=== PATIENT | male | born 1990 | race African-American/Black ===

== ENCOUNTER 2020-11-22 19:52 | Observation (INO) | payer MEDICAID, SELFPAY ==
[2020-11-22 19:53] VITALS: BP 139/95; PULSE 114; RESP 18; TEMP 36.3; O2SAT 98; BMI 26.4
--- NOTE | 2020-11-22 20:12 | EX.ED.DYSGE1 ---
HPI History of Present Illness Chief Complaint: Substance Abuse Informant: patient and parent Narrative Narrative: Patient presents requesting detox. Patient states that he was recently in long term. While in long term he was using any drugs that he can get his hands on. He knew he was going to be getting out of long term and his family would not allow him to use drugs so he tried to put himself on Suboxone while he was still in long term. After being released he tried getting it off the street. He was seen at [place] emergency room and placed on a 5-day course of Suboxone but missed his follow-up appointment at [facility]. Patient states he then started trying to buy Suboxone off the street again. He was having difficulty finding it was developing significant withdrawal symptoms. In the last several weeks he has tried using heroin, meth, cocaine to help control his withdrawal symptoms. He is asking for admission and detox through appropriate means. Patient currently complains of runny nose, body aches, aching in his legs. [facility] Medical History Paranoid schizophrenia Restless leg syndrome Substance abuse Home Medications olanzapine 15 mg PO QHS 11/22/20 [History Last Taken Unknown] Allergy/AdvReac Type Severity Reaction Status Date / Time Penicillins Allergy Unknown Verified 11/22/20 19:53 Social History (Updated 11/22/20 @ 20:[address] Xiomara Avalos MD) Smoking Status: Former smoker substance use type: crack/cocaine, heroin, opiates and methamphetamine ROS ROS ED Constitutional Constitutional ED: Denies chills or fever(s) Eyes Eyes: Denies change in vision ENT ENT ED: Reports rhinorrhea; Denies sore throat Cardiovascular Cardiovascular: Denies chest pain Respiratory/Chest Respiratory/Chest: Denies cough or dyspnea Gastrointestinal Gastrointestinal: Denies abdominal pain, diarrhea, nausea or vomiting Genitourinary Genitourinary ED: Denies dysuria Musculoskeletal Musculoskeletal: Reports myalgias; Denies back pain Integumentary Denies rash Neurologic Neurologic: Denies headache(s) or weakness Psychiatric Psychiatric: Denies anxiety or depression Endocrine Endocrinology: Denies polydipsia or polyuria Allergic/Immunologic Allergic/Immunologic ED: Denies urticaria EXAM Physical Exam Const Vital Signs: 11/22/20 19:53 Temperature 97.4 F L Temperature Source Temporal Pulse Rate 114 H Respiratory Rate 18 Blood Pressure 139/95 H Blood Pressure Mean 109 Pulse Ox 98 Oxygen Delivery Method Room Air Positive well nourished and well developed General Appearance ED: well developed HEENT Reports normocephalic and head/scalp atraumatic Eyes PERRL and EOMs intact bilaterally Neck supple Chest Wall inspection of chest normal and palpation of chest normal Resp normal respiratory effort and clear to auscultation bilaterally Cardio regular rate and regular rhythm GI normal to inspection, nondistended, normoactive bowel sounds Palpation: soft Back/Spine no CVA tenderness Extremity normal to inspection Extremity Narrative: Track alvarado noted to the right AC. No sign of acute infection Neuro oriented x3 and no sensory deficits noted Sensorium / Orientation: alert Motor Exam: strength 5/5 throughout Psych mental status grossly normal Skin General Skin Exam: other Track alvarado as above MDM MDM MDM Narrative Medical decision making narrative: Rules of the detox program were reviewed with the patient he did sign agreement. Lab Data Attestation: I reviewed the patient's lab results. Labs: Laboratory Results - last 24 hr 11/22/20 11/22/20 11/22/20 20:30 20:45 20:45 WBC 4.1 L RBC 5.20 Hgb 14.7 Hct 44.0 MCV 84.6 MCH 28.3 MCHC 33.4 RDW Std Deviation 39.3 RDW Coeff of Anali 12.8 Plt Count 205 MPV 9.5 Immature Gran % (Auto) 0.200 Neut % (Auto) 47.9 Lymph % (Auto) 34.6 [place] % (Auto) 14.1 H Eos % (Auto) 2.7 Baso % (Auto) 0.5 Absolute Neuts (auto) 1.9 L Absolute Lymphs (auto) 1.40 Nucleated RBC % 0 Sodium 140 Potassium 3.8 Chloride 103 Carbon Dioxide 35.0 H Anion Gap 2 L BUN 14 Creatinine 0.96 Estim Creat Clear Calc 124.84 Est GFR (MDRD) Af Amer 117 Est GFR (MDRD) Non-Af 96 BUN/Creatinine Ratio 14.6 Glucose 92 Calcium 9.0 Total Bilirubin 0.50 AST 50 H ALT 103 H Alkaline Phosphatase 76 Total Protein 7.3 Albumin 3.6 Globulin 3.7 Albumin/Globulin Ratio 1.0 Urine Opiates Screen POSITIVE H Urine Methadone Screen NEGATIVE Ur Barbiturates Screen NEGATIVE Ur Phencyclidine Scrn NEGATIVE Ur Amphetamines Screen POSITIVE H U Methamphetamin-MDMA POSITIVE H U Benzodiazepines Scrn NEGATIVE Urine Cocaine Screen POSITIVE H U Cannabinoids Screen NEGATIVE Ur Drug Screen Comment Ethyl Alcohol 11/22/20 20:45 WBC RBC Hgb Hct MCV MCH MCHC RDW Std Deviation RDW Coeff of Anali Plt Count MPV Immature Gran % (Auto) Neut % (Auto) Lymph % (Auto) [place] % (Auto) Eos % (Auto) Baso % (Auto) Absolute Neuts (auto) Absolute Lymphs (auto) Nucleated RBC % Sodium Potassium Chloride Carbon Dioxide Anion Gap BUN Creatinine Estim Creat Clear Calc Est GFR (MDRD) Af Amer Est GFR (MDRD) Non-Af BUN/Creatinine Ratio Glucose Calcium Total Bilirubin AST ALT Alkaline Phosphatase Total Protein Albumin Globulin Albumin/Globulin Ratio Urine Opiates Screen Urine Methadone Screen Ur Barbiturates Screen Ur Phencyclidine Scrn Ur Amphetamines Screen U Methamphetamin-MDMA U Benzodiazepines Scrn Urine Cocaine Screen U Cannabinoids Screen Ur Drug Screen Comment Ethyl Alcohol < 3.0 Treatment and Re-Evaluation Comments:: Lab work is obtained. ALT and AST are elevated. Remainder of lab work is largely unremarkable. Tox screen is positive for opiates, cocaine, amphetamines, methamphetamine. Patient will be discussed with hospitalist for admission. Discharge Plan Triage Chief Complaint: Substance Abuse ED Provider: Xiomara Avalos Dx/Rx/DC Orders Clinical Impression: Desire for detoxification, Opiate addiction Prescriptions: No Action olanzapine 15 mg Tablet 15 mg PO QHS RF: 0 Primary Care Provider: Care Physician,No Primary Referrals: Care Physician,No Primary [Primary Care Provider] -
[2020-11-22 20:48] LABS: Absolute Neutrophil Count 1.9 X10^3/uL (2.0-7.7); Basophil# 0.02 X10^3/uL; Basophil% 0.5 % (0-1); Eosinophil# 0.11 X10^3/uL; Eosinophils% 2.7 % (0-5); Hemoglobin 14.7 g/dL (13.0-16.5); Lymphocyte % 34.6 % (19-41); Mean Corp Hgb Conc 33.4 g/dL (32-36); Mean Corpuscular Hgb 28.3 pg (27.0-32.0); Mean Corpuscular Volume 84.6 fL (80-94); Mean Platelet Vol. 9.5 fl (6.2-12.0); Monocyte# 0.57 X10^3/uL; Monocyte% 14.1 % (0-10); NRBC Flagged by Analyzer 0 % (0-5); Neutrophil # 1.94 X10^3/uL (2.7-7.7); Neutrophil % 47.9 % (47-70); Platelet Count 205 K/mm3 (150-450); RBC Distribution Width CV 12.8 % (11.6-14.6); RBC Distribution Width SD 39.3 fl (35.1-43.9); White Blood Count 4.1 K/mm3 (4.4-11.0)
[2020-11-22 21:10] LABS: AST(SGOT) 50 U/L (15-37); Alanine Aminotransfer ALT/SGPT 103 U/L (16-61); Albumin, Serum 3.6 g/dL (3.2-5.0); Alkaline Phosphatase 76 U/L (45-117); Anion Gap 2 (5-15); BUN 14 mg/dL (7-18); BUN/Creat Ratio 14.6 RATIO (10-20); Chloride 103 mmol/L (98-107); Creatinine, Serum 0.96 mg/dL (0.70-1.30); EST Glomerular Filtration Rate 96 mL/min (>60); Est Glom Filt Rate - Afr Amer 117 mL/min (>60); Estimated Creatinine Clearance 124.84 ml/min; Globulin 3.7 g/dL (2.2-4.2); Glucose 92 mg/dL (74-106); Potassium 3.8 mmol/L (3.5-5.1); Protein, Total 7.3 g/dL (6.4-8.2); Sodium Level 140 mmol/L (136-145)
[2020-11-22 21:19] LABS: Alcohol, Blood (Medical)-Serum < 3.0 mg/dL
[2020-11-22 21:19] LABS: Amphetamine Urine VISTA POSITIVE (<1000 ng/mL); Barbiturate Urine VISTA NEGATIVE (< 200 ng/mL); Benzodiazepine Urine VISTA NEGATIVE (< 200 ng/mL); Cocaine Urine VISTA POSITIVE (< 300 ng/mL); Ecstacy Urine VISTA POSITIVE (< 500 ng/mL); Methadone Urine VISTA NEGATIVE (< 300 ng/mL); PCP Urine VISTA NEGATIVE (< 25 ng/mL); THC Urine VISTA NEGATIVE (< 50 ng/mL); Vista UDS pH Range 5
--- NOTE | 2020-11-22 21:53 | PCM.HP.STD ---
HPI - General General Date of Admission: 11/22/20 HPI Narrative NORMA NGUYEN, is a 30 M with a significant history of paranoid schizophrenia; restless legs and substance abuse who presents with drug withdrawal symptoms. His symptoms started few hours ago before presentation and it has been persistent.. His symptoms include runny nose; body aches; abdominal pain; aching in his legs and his feet. His symptom has been persistent. Patient shoots a mixture of different drugs including cocaine; methamphetamine; heroine; and fentanyl. Last time he used drugs was a day before presentation. At that time he shot methamphetamine and heroin. Of note patient was in the prisons recently and was using all kind of drugs as above. When he realized that he will be getting out of shelter he wanted to come out of drugs and started using Suboxone. He was at the [facility] recently and was given a prescription of Suboxone. He ran out of the Suboxone and started buying Suboxone off the street. [facility] Medical History Anxiety Asthma Depression Former smoker Hearing loss, left Hepatitis Paranoid schizophrenia Restless leg syndrome Schizophrenia Seizures Substance abuse Substance abuse Home Medications olanzapine 15 mg PO QHS 11/22/20 [History Last Taken Unknown] Allergy/AdvReac Type Severity Reaction Status Date / Time Penicillins Allergy Unknown Verified 11/22/20 19:53 Family History Grandmother Schizophrenia Drug abuse Grandfather Drug abuse Mother Drug abuse no surgical history Social History Smoking Status: Former smoker substance use type: crack/cocaine, heroin, opiates and methamphetamine ROS ROS Narrative 12 point review of system is negative except as stated in HPI. Vital Signs Vital Signs Vital Signs: 11/22/20 19:53 Temperature 97.4 F L Temperature Source Temporal Pulse Rate 114 H Respiratory Rate 18 Blood Pressure 139/95 H Blood Pressure Mean 109 Pulse Ox 98 Oxygen Delivery Method Room Air Physical Exam Narrative Alert and oriented x3 Nontraumatic; normocephalic Lung clear to auscultate Tachycardia; heart sounds S1-S2. No murmur, gallop or rubs. Abdomen bowel sounds present soft, nontender nondistended Extremity without edema cyanosis or clubbing. Lab / Micro Data Result Diagrams: 11/22/20 20:45 11/22/20 20:45 Labs: Laboratory Results - last 24 hr 11/22/20 11/22/20 11/22/20 20:30 20:45 20:45 WBC 4.1 L RBC 5.20 Hgb 14.7 Hct 44.0 MCV 84.6 MCH 28.3 MCHC 33.4 RDW Std Deviation 39.3 RDW Coeff of Anali 12.8 Plt Count 205 MPV 9.5 Immature Gran % (Auto) 0.200 Neut % (Auto) 47.9 Lymph % (Auto) 34.6 [place] % (Auto) 14.1 H Eos % (Auto) 2.7 Baso % (Auto) 0.5 Absolute Neuts (auto) 1.9 L Absolute Lymphs (auto) 1.40 Nucleated RBC % 0 Sodium 140 Potassium 3.8 Chloride 103 Carbon Dioxide 35.0 H Anion Gap 2 L BUN 14 Creatinine 0.96 Estim Creat Clear Calc 124.84 Est GFR (MDRD) Af Amer 117 Est GFR (MDRD) Non-Af 96 BUN/Creatinine Ratio 14.6 Glucose 92 Calcium 9.0 Total Bilirubin 0.50 AST 50 H ALT 103 H Alkaline Phosphatase 76 Total Protein 7.3 Albumin 3.6 Globulin 3.7 Albumin/Globulin Ratio 1.0 Urine Opiates Screen POSITIVE H Urine Methadone Screen NEGATIVE Ur Barbiturates Screen NEGATIVE Ur Phencyclidine Scrn NEGATIVE Ur Amphetamines Screen POSITIVE H U Methamphetamin-MDMA POSITIVE H U Benzodiazepines Scrn NEGATIVE Urine Cocaine Screen POSITIVE H U Cannabinoids Screen NEGATIVE Ur Drug Screen Comment Ethyl Alcohol 11/22/20 20:45 WBC RBC Hgb Hct MCV MCH MCHC RDW Std Deviation RDW Coeff of Anali Plt Count MPV Immature Gran % (Auto) Neut % (Auto) Lymph % (Auto) [place] % (Auto) Eos % (Auto) Baso % (Auto) Absolute Neuts (auto) Absolute Lymphs (auto) Nucleated RBC % Sodium Potassium Chloride Carbon Dioxide Anion Gap BUN Creatinine Estim Creat Clear Calc Est GFR (MDRD) Af Amer Est GFR (MDRD) Non-Af BUN/Creatinine Ratio Glucose Calcium Total Bilirubin AST ALT Alkaline Phosphatase Total Protein Albumin Globulin Albumin/Globulin Ratio Urine Opiates Screen Urine Methadone Screen Ur Barbiturates Screen Ur Phencyclidine Scrn Ur Amphetamines Screen U Methamphetamin-MDMA U Benzodiazepines Scrn Urine Cocaine Screen U Cannabinoids Screen Ur Drug Screen Comment Ethyl Alcohol < 3.0 Assessment & Plan Assessment/Plan (1) Desire for detoxification: (2) Opiate addiction: QUALIFIERS: Substance use status: in withdrawal Qualified Code(s): F11.23 - Opioid dependence with withdrawal (3) Elevated liver enzymes: PLAN: The patient is a 30 year old M with a significant history schizophrenia; hepatitis IV drug use; and former tobacco abuse who presents emergency department with drug withdrawal symptoms Opioid dependence and withdrawal Patient be started on Subutex and other adjunctive medications: Gabapentin as needed; dicyclomine as needed; Vistaril as needed; methocarbamol as needed; clonidine as needed; Imodium as needed; trazodone as needed and Zofran as needed. Monitor COWS and CINA score Elevated liver enzymes Imaging department labs reviewed showed elevated liver biochemistry. Reported previously he had hepatitis C but not in remission. Check acute hepatitis panel. DVT prophylaxis Low risk Encourage to ambulate Multi Select Codes Visit Charges Visit Charges: 36317 Init Hosp L3
--- NOTE | 2020-11-22 22:10 | ED.RN ---
CALLED TO ADVISE 180 OF THIS ADMISSION
[2020-11-22 22:35] VITALS: BP 139/95; PULSE 114; RESP 18; TEMP 36.3; O2SAT 98
[2020-11-22 22:53] VITALS: BP 154/97; PULSE 102; RESP 18; TEMP 36.9; O2SAT 97
[2020-11-22 22:57] VITALS: BMI 25.9
[2020-11-22] MEDS: Methocarbamol 750 MG Tablet 1500 MG PO (23:40)
[2020-11-22] MEDS: OLANZapine 10 MG Tablet 15 MG PO (23:40)
[2020-11-22] MEDS: Loperamide 2 MG Capsule PO (23:41)
--- NOTE | 2020-11-23 01:08 | NURSING ---
[id number] this RN was completing admission process and educating pt on [facility] protocols. This RN told pt that his hat had to be removed and placed in the lock-up bins. pt stating that I am a paranoid schizophrenic and I have to have my hat at all times. It is a security issue. Pt refusing to let this RN place hat in bins. Charge Nurse Fang in room and explained protocols again, but pt still refusing. was contacted and said as long as nothing was in the hat, pt may wear it. This RN searched hat, had pt take it and the bandana around pts hat off, and searched. Nothing was found, and hat placed back with pt.
[2020-11-23 04:34] VITALS: BP 115/69; PULSE 83; RESP 18; TEMP 36.4; O2SAT 100
[2020-11-23] MEDS: Methocarbamol 750 MG Tablet 1500 MG PO (08:03)
[2020-11-23] MEDS: Buprenorphine HCl 2 MG TAB.SUBL 4 MG SL (08:03)
[2020-11-23] MEDS: Ondansetron 8 MG Tablet PO (08:04)
[2020-11-23] MEDS: Ensure Clear 120 ML Liquid PO ×2 (08:05→11:34)
--- NOTE | 2020-11-23 11:19 | PN.HOSP_ITS ---
Subjective Subjective: Seen and examined. Patient still feeling restless and anxious. Muscle cramps in legs, diarrhea, abdominal cramps. Having withdrawal symptoms. Objective Data Objective Data Vital Signs: Vital Signs Temp Pulse Resp BP Pulse Ox 97.6 F L 83 18 115/69 100 11/23/20 04:34 11/23/20 04:34 11/23/20 04:34 11/23/20 04:34 11/23/20 04:34 Oxygen Delivery Method Room Air Weight: 196 lb 6.4 oz Body Mass Index (BMI) 25.9 Intake & Output: Intake and Output for Last 24 Hours 11/21/20 11/22/20 11/23/20 23:59 23:59 23:59 Intake Total 550 / 550 Balance 550 / 550 Lab / Micro Data Result Diagrams: 11/22/20 20:45 11/22/20 20:45 Labs: Laboratory Results - last 24 hr 11/22/20 11/22/20 11/22/20 20:30 20:45 20:45 WBC 4.1 L RBC 5.20 Hgb 14.7 Hct 44.0 MCV 84.6 MCH 28.3 MCHC 33.4 RDW Std Deviation 39.3 RDW Coeff of Anali 12.8 Plt Count 205 MPV 9.5 Immature Gran % (Auto) 0.200 Neut % (Auto) 47.9 Lymph % (Auto) 34.6 [place] % (Auto) 14.1 H Eos % (Auto) 2.7 Baso % (Auto) 0.5 Absolute Neuts (auto) 1.9 L Absolute Lymphs (auto) 1.40 Nucleated RBC % 0 Sodium 140 Potassium 3.8 Chloride 103 Carbon Dioxide 35.0 H Anion Gap 2 L BUN 14 Creatinine 0.96 Estim Creat Clear Calc 124.84 Est GFR (MDRD) Af Amer 117 Est GFR (MDRD) Non-Af 96 BUN/Creatinine Ratio 14.6 Glucose 92 Calcium 9.0 Total Bilirubin 0.50 AST 50 H ALT 103 H Alkaline Phosphatase 76 Total Protein 7.3 Albumin 3.6 Globulin 3.7 Albumin/Globulin Ratio 1.0 Urine Opiates Screen POSITIVE H Urine Methadone Screen NEGATIVE Ur Barbiturates Screen NEGATIVE Ur Phencyclidine Scrn NEGATIVE Ur Amphetamines Screen POSITIVE H U Methamphetamin-MDMA POSITIVE H U Benzodiazepines Scrn NEGATIVE Urine Cocaine Screen POSITIVE H U Cannabinoids Screen NEGATIVE Ur Drug Screen Comment Ethyl Alcohol 11/22/20 20:45 WBC RBC Hgb Hct MCV MCH MCHC RDW Std Deviation RDW Coeff of Anali Plt Count MPV Immature Gran % (Auto) Neut % (Auto) Lymph % (Auto) [place] % (Auto) Eos % (Auto) Baso % (Auto) Absolute Neuts (auto) Absolute Lymphs (auto) Nucleated RBC % Sodium Potassium Chloride Carbon Dioxide Anion Gap BUN Creatinine Estim Creat Clear Calc Est GFR (MDRD) Af Amer Est GFR (MDRD) Non-Af BUN/Creatinine Ratio Glucose Calcium Total Bilirubin AST ALT Alkaline Phosphatase Total Protein Albumin Globulin Albumin/Globulin Ratio Urine Opiates Screen Urine Methadone Screen Ur Barbiturates Screen Ur Phencyclidine Scrn Ur Amphetamines Screen U Methamphetamin-MDMA U Benzodiazepines Scrn Urine Cocaine Screen U Cannabinoids Screen Ur Drug Screen Comment Ethyl Alcohol < 3.0 Physical Exam Narrative General: Drowsy and lethargic. Oriented x3. Restless HEENT: Atraumatic, PERRLA, EOMI, Normocephalic Oral: No Gingival or Mucosal Lesions/ Ulcerations Neck: Supple, No JVD, Negative Carotid Bruits Lungs: Air entry diminished in bilateral lung bases. No crepitation/rhonchi Cardiovascular: Regular rate, Regular Rhythm, Normal S1, Normal S2, No murmurs Abdomen: Bowel Sounds Present, Soft, Non Tender, Non-Distended : No renal angle tenderness. No suprapubic tenderness. Extremities: No edema, Capillary Refill Less than 3 Seconds Skin: No rashes, No breakdown Musculoskeletal: No Tenderness to Palpation of Joints or Extremities. Mild tremors. Neurological: Cranial nerves II-XII grossly intact, Deep Tendon Reflexes 2+/4 and Symmetrical, Neuro grossly intact Psych/Mental Status: Anxious, flat affect Assessment & Plan Assessment/Plan (1) Opiate addiction: QUALIFIERS: Substance use status: in withdrawal Qualified Code(s): F11.23 - Opioid dependence with withdrawal PLAN: This 30-year-old gentleman admitted for opioid withdrawal symptoms. 1. Acute opioid withdrawal syndrome with history of chronic opioid use, dep endence and tolerance: Patient is on buprenorphine based on her supportive medications including gabapentin, dicyclomine, hydroxyzine, methocarbamol, clonidine, Imodium, Zofran and trazodone. COWS and CINA score monitoring. U tox positive of opioids, amphetamine, methamphetamine and cocaine. Serum alcohol level negative. 2. Acute hepatitis most probably drug-induced with history of chronic hepatitis C: Patient stated he completed treatment of hepatitis C although details not available. AST 50, ALT 103. Monitor liver chemistry tomorrow a.m. Viral hepatitis panel pending. 3. VTE prophylaxis: Low risk, early ambulation encouraged. 4. History of schizophrenia, paranoid type, restlessness syndrome and polysubstance use history Visit Charges Inpatient E&M: 91010 Subs Hosp L2
[2020-11-23 11:26] VITALS: BP 126/84; PULSE 98; RESP 16; TEMP 36.5; O2SAT 99
[2020-11-23] MEDS: Gabapentin 300 MG Capsule PO (11:35)
[2020-11-23] MEDS: cloNIDine HCl 0.1 MG Tablet PO (11:35)
--- NOTE | 2020-11-23 14:18 | NURSING ---
1409 Counselor talking to pt. nurse walked in to check on him and then he said doesn't make sense to detox in 4 days and wants to leave.
--- NOTE | 2020-11-23 15:38 | DS.PCM_ITS ---
Providers Date of Admission: 11/22/20 Primary Care Physician: No Primary Care Phys Reason For Visit: OPIOID WITHDRAWAL Diagnosis Discharge Diagnosis (1) Opiate addiction: Status: Acute Code(s): F11.20 - Opioid dependence, uncomplicated Qualifiers: Substance use status: in withdrawal Qualified Code(s): F11.23 - Opioid dependence with withdrawal Medications at Discharge Home Medications olanzapine 15 mg PO QHS 11/22/20 Hospital Course Summary of Care Provided Hospital Course: The patient was admitted for acute opioid withdrawal syndrome for medical stabilization. Patient on buprenorphine patient other supportive medications. As patient was seen by counselor he stated he does not make sense to stay for 4 days for opioid detoxification. He signed AMA. He has other comorbidities including acute hepatitis with history of chronic hep C and schizophrenia paranoid type, as mentioned in progress note. Patient awake and alert and knows the risks of signing AMA but anyhow signed and left the hospital. Physical Exam Narrative Patient was seen and examined today. Please see physical findings of the same date the progress note. ABG / Lab / Microbiology Data Result Diagrams: 11/22/20 20:45 11/22/20 20:45 Laboratory: Laboratory Results - last 24 hr 11/22/20 11/22/20 11/22/20 20:30 20:45 20:45 WBC 4.1 L RBC 5.20 Hgb 14.7 Hct 44.0 MCV 84.6 MCH 28.3 MCHC 33.4 RDW Std Deviation 39.3 RDW Coeff of Anali 12.8 Plt Count 205 MPV 9.5 Immature Gran % (Auto) 0.200 Neut % (Auto) 47.9 Lymph % (Auto) 34.6 [place] % (Auto) 14.1 H Eos % (Auto) 2.7 Baso % (Auto) 0.5 Absolute Neuts (auto) 1.9 L Absolute Lymphs (auto) 1.40 Nucleated RBC % 0 Sodium 140 Potassium 3.8 Chloride 103 Carbon Dioxide 35.0 H Anion Gap 2 L BUN 14 Creatinine 0.96 Estim Creat Clear Calc 124.84 Est GFR (MDRD) Af Amer 117 Est GFR (MDRD) Non-Af 96 BUN/Creatinine Ratio 14.6 Glucose 92 Calcium 9.0 Total Bilirubin 0.50 AST 50 H ALT 103 H Alkaline Phosphatase 76 Total Protein 7.3 Albumin 3.6 Globulin 3.7 Albumin/Globulin Ratio 1.0 Urine Opiates Screen POSITIVE H Urine Methadone Screen NEGATIVE Ur Barbiturates Screen NEGATIVE Ur Phencyclidine Scrn NEGATIVE Ur Amphetamines Screen POSITIVE H U Methamphetamin-MDMA POSITIVE H U Benzodiazepines Scrn NEGATIVE Urine Cocaine Screen POSITIVE H U Cannabinoids Screen NEGATIVE Ur Drug Screen Comment Ethyl Alcohol 11/22/20 20:45 WBC RBC Hgb Hct MCV MCH MCHC RDW Std Deviation RDW Coeff of Anali Plt Count MPV Immature Gran % (Auto) Neut % (Auto) Lymph % (Auto) [place] % (Auto) Eos % (Auto) Baso % (Auto) Absolute Neuts (auto) Absolute Lymphs (auto) Nucleated RBC % Sodium Potassium Chloride Carbon Dioxide Anion Gap BUN Creatinine Estim Creat Clear Calc Est GFR (MDRD) Af Amer Est GFR (MDRD) Non-Af BUN/Creatinine Ratio Glucose Calcium Total Bilirubin AST ALT Alkaline Phosphatase Total Protein Albumin Globulin Albumin/Globulin Ratio Urine Opiates Screen Urine Methadone Screen Ur Barbiturates Screen Ur Phencyclidine Scrn Ur Amphetamines Screen U Methamphetamin-MDMA U Benzodiazepines Scrn Urine Cocaine Screen U Cannabinoids Screen Ur Drug Screen Comment Ethyl Alcohol < 3.0 Meaningful Use Info Meaningful Use Diagnoses (Choose all that apply): None applicable Discharge Plan Admission Admit Date/Time: 11/22/20 21:53 Attending Provider: Olivier Gilbert Primary Care Provider: Care Physician,Magali Primary Discharge Orders/Prescriptions Prescriptions: No Action olanzapine 15 mg Tablet 15 mg PO QHS RF: 0 Referrals / Follow Up: Care Physician,No Primary [Primary Care Provider] - Disposition Disposition (needs filled in before D/C Order can be placed): Against Medical Advice Addendum Addendum: Please cancel the billing charge of the same date as patient left AMA but charge for discharge summary. Visit Charges Inpatient E&M: 41996 Disch Hosp
--- NOTE | 2020-11-24 12:47 | CASEMGMT ---
Social Work Note DOMINIC received call from Xiomara with [facility] stating pt was seen over the weekend but [employer] needed additional information such as pt's , Race, and City. DOMINIC provided information to Xiomara. Rossy Bates CUSTOMER ENGAGEMENT SPECIALIST, SUMMER CAMP COUNSELOR
[2020-11-25 08:09] LABS: HEPATITIS B SURFACE AG Negative (Negative); Hepatitis A IgM Antibody Negative (Negative); Hepatitis B Core AB IgM Negative (Negative)
[2020-11-25 15:49] LABS: Hep C Antibodies >11.0 s/co ratio (0.0-0.9)
== END 2020-11-23 14:27 | disposition left against medical advice (07) ==
LOC: ED 20:23 → MS3 23:18
PROVIDERS: Admitting Provider Hospitalist; Emergency Provider Emergency Medicine; Visit Provider Internal Medicine
DX: F11.23 Opioid dependence with withdrawal (principal); B18.2 Chronic viral hepatitis C; F20.0 Paranoid schizophrenia; Z79.899 Other long term (current) drug therapy; G25.81 Restless legs syndrome; Z87.891 Personal history of nicotine dependence; F14.10 Cocaine abuse, uncomplicated; F15.10 Other stimulant abuse, uncomplicated; H91.92 Unspecified hearing loss, left ear; J45.909 Unspecified asthma, uncomplicated
CPT/HCPCS: 80053; 80074; 80307; 82077; 85025; 99218; 99284; A4216; G0378

== ENCOUNTER 2021-03-19 10:13 | Emergency (ER) | payer MEDICAID, SELFPAY ==
[2021-03-19 10:13] VITALS: BP 144/92; PULSE 117; RESP 20; TEMP 36.7; O2SAT 100; BMI 27.3
--- NOTE | 2021-03-19 11:13 | ED.RN ---
PT REQUESTING TO BE ABLE TO WEAR HIS HAT WHEN ADMITTED. I SPOKE WITH THE PT AND EXPLAINED THE REASONS THAT HE GIVES UP HIS BELONGINGS. PT REQUESTING SOMETHING TO WEAR ON THIS HEAD. A PILLOW CASE OR SOMETHING. IT'S A SECURITY THING TO HELP WITH MY ANXIETY. THIS NURSE SPOKE WITH THE CHARGE NURSE ON MED/SURG 3. OK FOR THE PT TO WEAR A PILLOW CASE OR SOMETHING SIMILAR LONG IT IS PROVIDED BY THE HOSPITAL
[2021-03-19 11:40] LABS: Bacteria 0 SEEN /hpf (None Seen); Mucous, Urine 0 SEEN /hpf (<or=2+); Red Blood Cells-Urine 0 SEEN /hpf (0-5); Squamous Epithelial Cells - UA 0 SEEN /hpf (0-5)
[2021-03-19 11:44] LABS: Color, Urine Yellow (Yellow); Glucose, Dipstick Normal (Normal); Ketone-Dipstick 50 mg/dl (Negative); Leukocyte Esterase-Dipstick 100 /ul (Negative); Nitrite-Dipstick Negative (Negative); Occult Blood-Urine Negative /ul (Negative); Protein-Dipstick 30 mg/dl (Negative); Specific Gravity, Urine 1.015 (1.002-1.030); Urine Bilirubin Dipstick 1 mg/dL (Negative); Urine Clarity Cloudy (Clear); Urine Urobilinogen 8 mg/dl (Normal)
[2021-03-19 11:48] LABS: White Blood Cells 0-5 SEEN /hpf (0-5)
[2021-03-19 11:49] LABS: Amorphous Sediment 3+
[2021-03-19 11:53] LABS: Absolute Lymphocyte Count 1.08 X10^3/uL (0.83-4.51); Absolute Neutrophil Count 3.2 X10^3/uL (2.0-7.7); Basophil# 0.01 X10^3/uL; Basophil% 0.2 % (0-1); Eosinophil# 0.04 X10^3/uL; Eosinophils% 0.9 % (0-5); Hemoglobin 15.5 g/dL (13.0-16.5); Lymphocyte # 1.08 X10^3/ul (0.83-4.51); Lymphocyte % 23.2 % (19-41); Mean Corp Hgb Conc 33.7 g/dL (32-36); Mean Corpuscular Hgb 28.3 pg (27.0-32.0); Mean Corpuscular Volume 84.1 fL (80-94); Mean Platelet Vol. 9.7 fl (6.2-12.0); Monocyte% 6.4 % (0-10); NRBC Flagged by Analyzer 0 % (0-5); Neutrophil # 3.21 X10^3/uL (2.7-7.7); Neutrophil % 68.9 % (47-70); Platelet Count 197 K/mm3 (150-450); RBC Distribution Width CV 12.9 % (11.6-14.6); RBC Distribution Width SD 39.7 fl (35.1-43.9); Red Blood Count 5.47 M/mm3 (4.6-6.2); White Blood Count 4.7 K/mm3 (4.4-11.0)
--- NOTE | 2021-03-19 12:05 | CM.ED ---
DOMINIC Note: Referral Source: GOLF COURSE PATROLLER Referral Reason: GOLF COURSE PATROLLER reports that patient said that he is not suicidal or homicidal but wants to talk to someone. SW met with patient. Patient is obviously under the influence as evidenced by his pressured talking, restlessness and poor eye contact. However, patient was able to engaged in conversation. Patient reports that he used meth this morning at 7:00am. He reports he speedballs cocaine and meth. He reports meth and cocaine use of 1-5 mg a day . Patient reports he wants detox. He is interested in the [facility] program. Reports he believes that his issue is his self esteem as someone told him he was ugly. Patient said that his family thinks he is schizophrenic but patient admitted that the drug use could be affecting him. Patient said the doctor said I was schizophrenic. Patient denied any SI/HI. [facility]. [facility] reports that patient was in yesterday for drug screening. Patient is on probation. Kathleen said that patient also prescribed suboxone. updated. Plan: Admit to [facility]
[2021-03-19 12:10] LABS: ALB/GLOB Ratio 0.9 RATIO (0.9-2.4); AST(SGOT) 47 U/L (15-37); Alanine Aminotransfer ALT/SGPT 83 U/L (16-61); Albumin, Serum 3.8 g/dL (3.2-5.0); Alkaline Phosphatase 89 U/L (45-117); Anion Gap 4 (5-15); BUN 11 mg/dL (7-18); BUN/Creat Ratio 10.6 RATIO (10-20); Calcium,Total 9.4 mg/dL (8.5-10.1); Chloride 106 mmol/L (98-107); Creatinine, Serum 1.04 mg/dL (0.70-1.30); EST Glomerular Filtration Rate 88 mL/min (>60); Est Glom Filt Rate - Afr Amer 106 mL/min (>60); Estimated Creatinine Clearance 115.24 ml/min; Globulin 4.1 g/dL (2.2-4.2); Glucose 93 mg/dL (74-106); Protein, Total 7.9 g/dL (6.4-8.2); Sodium Level 139 mmol/L (136-145)
[2021-03-19 12:13] LABS: Amphetamine Urine VISTA POSITIVE (<1000 ng/mL); Barbiturate Urine VISTA NEGATIVE (< 200 ng/mL); Benzodiazepine Urine VISTA NEGATIVE (< 200 ng/mL); Cocaine Urine VISTA NEGATIVE (< 300 ng/mL); Ecstacy Urine VISTA POSITIVE (< 500 ng/mL); Methadone Urine VISTA NEGATIVE (< 300 ng/mL); PCP Urine VISTA NEGATIVE (< 25 ng/mL); THC Urine VISTA NEGATIVE (< 50 ng/mL); Vista UDS pH Range 6
--- NOTE | 2021-03-19 13:01 | EDS_ITS ---
HPI History of Present Illness Chief Complaint: Substance Abuse Informant: patient Onset/Context/Timing Onset: Days (2) Context: Gradual Onset Timing: Continuous Worsened by: Nothing Relieved by: Nothing Associated Symptoms Associated Symptoms: Negative for vomiting*, diarrhea*, fever*, rash*, seizure, palpatations, change in mental status, suicidal ideation and homicidal ideation Narrative Narrative: Patient presents requesting detox from heroin. Patient states his last heroin use was 2 days ago. Patient states he usually uses 1 g/day. Patient also admits to using methamphetamines. Patient states his last detox was here last May. Patient denies any nausea or vomiting. Patient denies any diarrhea. Patient denies any suicidal homicidal ideations. Patient denies any fevers or chills. PFSH PFS Medical History Anxiety Asthma Depression Former smoker Hearing loss, left Hepatitis Paranoid schizophrenia Restless leg syndrome Schizophrenia Seizures Substance abuse Substance abuse Home Medications quetiapine 150 mg PO DAILY 03/19/21 [History Last Taken Unknown] Allergy/AdvReac Type Severity Reaction Status Date / Time Penicillins Allergy Unknown Verified 03/19/21 10:17 Family History Grandmother Schizophrenia Drug abuse Grandfather Drug abuse Mother Drug abuse no surgical history Social History Smoking Status: Former smoker substance use type: crack/cocaine, heroin, opiates and methamphetamine ROS ROS ED Constitutional Constitutional ED: Denies chills or fever(s) Eyes Eyes: Denies blurry vision or change in vision ENT ENT ED: Denies rhinorrhea or sore throat Cardiovascular Cardiovascular: Denies chest pain or palpitations Respiratory/Chest Respiratory/Chest: Denies cough or dyspnea Gastrointestinal Gastrointestinal: Reports nausea; Denies vomiting Genitourinary Genitourinary ED: Denies dysuria or hematuria Musculoskeletal Musculoskeletal: Denies back pain or neck pain Integumentary Denies abscess or rash Neurologic Neurologic: Denies headache(s) or weakness Allergic/Immunologic Allergic/Immunologic ED: Denies mouth swelling or urticaria EXAM Physical Exam Const Vital Signs: 03/19/21 10:13 03/19/21 13:14 Temperature 98.1 F 99.1 F Temperature Source Temporal Temporal Pulse Rate 117 H 104 H Respiratory Rate 20 H 18 Blood Pressure 144/92 H 154/111 H Blood Pressure Mean 109 125 Pulse Ox 100 99 Oxygen Delivery Method Room Air Room Air Positive well nourished and well developed General Appearance ED: well developed HEENT Reports moist mucous membranes Neck supple and no JVD Resp normal respiratory effort and clear to auscultation bilaterally Cardio regular rate, regular rhythm and no murmurs GI normal to inspection, nondistended, normoactive bowel sounds, soft to palpation and non-tender Palpation: soft Extremity normal to inspection General Extremety ED: Negative for edema or tenderness General Extremity: Negative for edema Neuro oriented x3, CN's II-XII intact bilaterally and no sensory deficits noted Sensorium / Orientation: alert Motor Exam: strength 5/5 throughout Psych mental status grossly normal Skin no rashes or lesions noted MDM MDM MDM Narrative Medical decision making narrative: CBC and comprehensive metabolic profile were essentially within normal limits. Urinalysis does not show any evidence of urinary tract infection. Urine toxin was positive for amphetamines and methamphetamines. Serum alcohol level was ordered and is pending. COVID-19 rapid antigen was obtained and is pending. Case was discussed with the hospitalist. She will admit the patient to her service. Patient understood and was agreeable with the plan. All questions were answered. Prior to admission, patient states he does not want to be admitted because he would not be allowed to wear his own hat. Patient will sign out AMA. Lab Data Attestation: I reviewed the patient's lab results. Labs: Laboratory Results - last 24 hr 03/19/21 03/19/21 03/19/21 11:25 11:25 11:45 WBC 4.7 RBC 5.47 Hgb 15.5 Hct 46.0 MCV 84.1 MCH 28.3 MCHC 33.7 RDW Std Deviation 39.7 RDW Coeff of Anali 12.9 Plt Count 197 MPV 9.7 Immature Gran % (Auto) 0.400 Neut % (Auto) 68.9 Lymph % (Auto) 23.2 Sebastian % (Auto) 6.4 Eos % (Auto) 0.9 Baso % (Auto) 0.2 Absolute Neuts (auto) 3.2 Absolute Lymphs (auto) 1.08 Nucleated RBC % 0 Sodium Potassium Chloride Carbon Dioxide Anion Gap BUN Creatinine Estim Creat Clear Calc Est GFR (MDRD) Af Amer Est GFR (MDRD) Non-Af BUN/Creatinine Ratio Glucose Calcium Total Bilirubin AST ALT Alkaline Phosphatase Total Protein Albumin Globulin Albumin/Globulin Ratio Urine Color Yellow Urine Clarity Cloudy Urine pH 7.0 Ur Specific [place] 1.015 Urine Protein 30 H Urine Glucose (UA) Normal Urine Ketones 50 H Urine Occult Blood Negative Urine Nitrite Negative Urine Bilirubin 1 H Urine Urobilinogen 8 H Ur Leukocyte Esterase 100 H Urine RBC 0 SEEN Urine WBC 0-5 SEEN Ur Squamous Epith Cells 0 SEEN Amorphous Sediment 3+ Urine Bacteria 0 SEEN Urine Mucus 0 SEEN Urine Opiates Screen NEGATIVE Urine Methadone Screen NEGATIVE Ur Barbiturates Screen NEGATIVE Ur Phencyclidine Scrn NEGATIVE Ur Amphetamines Screen POSITIVE H U Methamphetamin-MDMA POSITIVE H U Benzodiazepines Scrn NEGATIVE Urine Cocaine Screen NEGATIVE U Cannabinoids Screen NEGATIVE Ur Drug Screen Comment Ethyl Alcohol 03/19/21 03/19/21 11:45 11:45 WBC RBC Hgb Hct MCV MCH MCHC RDW Std Deviation RDW Coeff of Anali Plt Count MPV Immature Gran % (Auto) Neut % (Auto) Lymph % (Auto) Sebastian % (Auto) Eos % (Auto) Baso % (Auto) Absolute Neuts (auto) Absolute Lymphs (auto) Nucleated RBC % Sodium 139 Potassium 4.0 Chloride 106 Carbon Dioxide 29.0 Anion Gap 4 L BUN 11 Creatinine 1.04 Estim Creat Clear Calc 115.24 Est GFR (MDRD) Af Amer 106 Est GFR (MDRD) Non-Af 88 BUN/Creatinine Ratio 10.6 Glucose 93 Calcium 9.4 Total Bilirubin 0.40 AST 47 H ALT 83 H Alkaline Phosphatase 89 Total Protein 7.9 Albumin 3.8 Globulin 4.1 Albumin/Globulin Ratio 0.9 Urine Color Urine Clarity Urine pH Ur Specific [place] Urine Protein Urine Glucose (UA) Urine Ketones Urine Occult Blood Urine Nitrite Urine Bilirubin Urine Urobilinogen Ur Leukocyte Esterase Urine RBC Urine WBC Ur Squamous Epith Cells Amorphous Sediment Urine Bacteria Urine Mucus Urine Opiates Screen Urine Methadone Screen Ur Barbiturates Screen Ur Phencyclidine Scrn Ur Amphetamines Screen U Methamphetamin-MDMA U Benzodiazepines Scrn Urine Cocaine Screen U Cannabinoids Screen Ur Drug Screen Comment Ethyl Alcohol < 3.0 Discharge Plan Triage Chief Complaint: Substance Abuse ED Provider: Ian Bland Dx/Rx/DC Orders Clinical Impression: Opiate withdrawal, Desire for detoxification Prescriptions: No Action quetiapine 100 mg tablet 150 mg PO DAILY RF: 0 Primary Care Provider: Arina Manley Referrals: Arina Manley MD [Primary Care Provider] - Disposition Disposition: Against Medical Advice Discharge Date/Time: 03/19/21 14:06
[2021-03-19 13:14] VITALS: BP 154/111; PULSE 104; RESP 18; TEMP 37.3; O2SAT 99
--- NOTE | 2021-03-19 13:17 | NURSING ---
[address] [address] OPIATE WITHDRAWAL
[2021-03-19 13:27] LABS: Alcohol, Blood (Medical)-Serum < 3.0 mg/dL
--- NOTE | 2021-03-19 13:49 | HP.PCM.HOS_ITS ---
HPI - General General Date of Admission: 03/19/21 Date of Service: 03/19/21 HPI Narrative NORMA NGUYEN, is a 30 M who presents [facility] Medical History Anxiety Asthma Depression Former smoker Hearing loss, left Hepatitis Paranoid schizophrenia Restless leg syndrome Schizophrenia Seizures Substance abuse Substance abuse Home Medications quetiapine 150 mg PO DAILY 03/19/21 [History Last Taken Unknown] Allergy/AdvReac Type Severity Reaction Status Date / Time Penicillins Allergy Unknown Verified 03/19/21 10:17 Family History Grandmother Schizophrenia Drug abuse Grandfather Drug abuse Mother Drug abuse Social History Smoking Status: Former smoker substance use type: crack/cocaine, heroin, opiates and methamphetamine Vital Signs Vital Signs Vital Signs: 03/19/21 10:13 03/19/21 13:14 Temperature 98.1 F 99.1 F Temperature Source Temporal Temporal Pulse Rate 117 H 104 H Respiratory Rate 20 H 18 Blood Pressure 144/92 H 154/111 H Blood Pressure Mean 109 125 Pulse Ox 100 99 Oxygen Delivery Method Room Air Room Air Weight Weight: 94 kg Body Mass Index (BMI) 27.3 Results Lab / Micro Data Result Diagrams: 03/19/21 11:45 03/19/21 11:45 Labs: Laboratory Results - last 24 hr 03/19/21 11:25: Urine Color Yellow, Urine Clarity Cloudy, Urine pH 7.0, Ur Specific [place] 1.015, Urine Protein 30 H, Urine Glucose (UA) Normal, Urine Ketones 50 H, Urine Occult Blood Negative, Urine Nitrite Negative, Urine Bilirubin 1 H, Urine Urobilinogen 8 H, Ur Leukocyte Esterase 100 H, Urine RBC 0 SEEN, Urine WBC 0-5 SEEN, Ur Squamous Epith Cells 0 SEEN, Amorphous Sediment 3+, Urine Bacteria 0 SEEN, Urine Mucus 0 SEEN 03/19/21 11:25: Urine Opiates Screen NEGATIVE, Urine Methadone Screen NEGATIVE, Ur Barbiturates Screen NEGATIVE, Ur Phencyclidine Scrn NEGATIVE, Ur Amphetamines Screen POSITIVE H, U Methamphetamin-MDMA POSITIVE H, U Benzodiazepines Scrn NEGATIVE, Urine Cocaine Screen NEGATIVE, U Cannabinoids Screen NEGATIVE, Ur Drug Screen Comment 03/19/21 11:45: WBC 4.7, RBC 5.47, Hgb 15.5, Hct 46.0, MCV 84.1, MCH 28.3, MCHC 33.7, RDW Std Deviation 39.7, RDW Coeff of Anali 12.9, Plt Count 197, MPV 9.7, Immature Gran % (Auto) 0.400, Neut % (Auto) 68.9, Lymph % (Auto) 23.2, [place] % (Auto) 6.4, Eos % (Auto) 0.9, Baso % (Auto) 0.2, Absolute Neuts (auto) 3.2, Absolute Lymphs (auto) 1.08, Nucleated RBC % 0 03/19/21 11:45: Sodium 139, Potassium 4.0, Chloride 106, Carbon Dioxide 29.0, Anion Gap 4 L, BUN 11, Creatinine 1.04, Estim Creat Clear Calc 115.24, Est GFR (MDRD) Af Amer 106, Est GFR (MDRD) Non-Af 88, BUN/Creatinine Ratio 10.6, Glucose 93, Calcium 9.4, Total Bilirubin 0.40, AST 47 H, ALT 83 H, Alkaline Phosphatase 89, Total Protein 7.9, Albumin 3.8, Globulin 4.1, Albumin/Globulin Ratio 0.9 03/19/21 11:45: Ethyl Alcohol < 3.0 Micro: Microbiology 03/19/21 12:55 Nasal Secretion SARS-CoV-2 Antigen (Rapid) - Final
--- NOTE | 2021-03-19 14:14 | ED.RN ---
Pt signed out AMA due to not agreeing to take his hat and belongings off. Pt has talked to numerous staff about this this admission and had earlier agreed to it. Pt now refusing to sign the RAMP agreement form and expresses wanting to leave AMA. Dr Bland notified and signed AMA form, patient signed as well and verbalizes understanding of leaving AMA. Pt ambulates self out of department at 1406.
--- NOTE | 2021-03-19 17:08 | CM.ED ---
DOMINIC note DOMINIC was advised by CARGOMAN that patient had left AMA. DOMINIC called Treatment Navigator, Annabel and updated her regarding this matter. Plan: Patient declined RAMP program Lucia ABDI
--- NOTE | 2021-03-19 17:31 | CM.ED ---
SW Note SW went to outside hospital ramp and spoke to Officer Mika. He said that patient had been picked up by 2 staff from [facility]. Plan: [facility] staff to follow up Lucia ABDI
== END 2021-03-19 14:06 | disposition left against medical advice (07) ==
PROVIDERS: Emergency Provider Emergency Medicine; PCP Internal Medicine
DX: F11.23 Opioid dependence with withdrawal (principal); Z87.891 Personal history of nicotine dependence; F15.90 Other stimulant use, unspecified, uncomplicated; F32.9 Major depressive disorder, single episode, unspecified; J45.909 Unspecified asthma, uncomplicated; F20.0 Paranoid schizophrenia
CPT/HCPCS: 80053; 80307; 81001; 82077; 85025; 87426; 99284

== ENCOUNTER 2023-01-20 23:09 | Emergency (ER) | payer MEDICAID, SELFPAY ==
[2023-01-20 23:10] VITALS: BP 167/90; PULSE 90; RESP 18; TEMP 36.8; O2SAT 98; BMI 31.5
--- NOTE | 2023-01-20 23:45 | CT_ITS ---
EXAM: CT HEAD WITHOUT INTRAVENOUS CONTRAST CLINICAL INDICATION: Pain TECHNIQUE: Multiple axial images were obtained of the head without intravenous contrast. This CT exam was performed using one or more of the following dose reduction techniques: automated exposure control, adjustment of the mA and/or kV according to patient size, and/or use of iterative reconstruction technique. RADIATION DOSE: CTDIvol = 44.99 mGy, DLP = 863.60 mGy-cm COMPARISON: No relevant prior studies available. FINDINGS: BRAIN AND EXTRA-AXIAL SPACES: Unremarkable. No intra- or extra-axial hemorrhage. No evidence of acute infarct. No intracranial mass or mass effect. There is preservation of the sloan/white matter interface. Posterior fossa structures are unremarkable. Ventricles are appropriate for age. No hydrocephalus. Basal cisterns are patent. BONES/JOINTS: Unremarkable. No discrete lytic or blastic abnormalities. SINUSES: Unremarkable as visualized. Clear. MASTOID AIR CELLS: Unremarkable. Clear. ORBITS: Visualized globes, extraocular muscles, optic nerves and retrobulbar fat appear unremarkable. CT/Brain/Head without Contrast IMPRESSION: Negative head/brain CT without intravenous contrast. Electronically Signed: Timur Mitchell MD at 1:08 EDT ,
[2023-01-21] MEDS: DiphenhydrAMINE 50 MG/ML Syringe 25 MG IV
[2023-01-21] MEDS: 0.9% Normal Saline 1,000 ML 999 ML IV
[2023-01-21] MEDS: proCHLORPERazine 10 MG/2 ML Vial IV
[2023-01-21 00:10] LABS: Absolute Lymphocyte Count 1.83 X10^3/uL (0.83-4.51); Basophil# 0.02 X10^3/uL; Basophil% 0.4 % (0-1); Eosinophil# 0.21 X10^3/uL; Eosinophils% 3.7 % (0-5); Hematocrit 45.5 % (40-54); Hemoglobin 15.4 g/dL (13.0-16.5); Lymphocyte # 1.83 X10^3/ul (0.83-4.51); Lymphocyte % 32.4 % (19-41); Mean Corp Hgb Conc 33.8 g/dL (32-36); Mean Corpuscular Hgb 28.9 pg (27.0-32.0); Mean Corpuscular Volume 85.5 fL (80-94); Mean Platelet Vol. 10.1 fl (6.2-12.0); Monocyte# 0.52 X10^3/uL; Monocyte% 9.2 % (0-10); NRBC Flagged by Analyzer 0 % (0-5); Neutrophil # 3.04 X10^3/uL (2.7-7.7); Neutrophil % 53.9 % (47-70); Platelet Count 194 K/mm3 (150-450); RBC Distribution Width CV 12.9 % (11.6-14.6); RBC Distribution Width SD 39.5 fl (35.1-43.9); Red Blood Count 5.32 M/mm3 (4.6-6.2); White Blood Count 5.6 K/mm3 (4.4-11.0)
[2023-01-21 00:26] LABS: Anion Gap 6 (5-15); BUN 16 mg/dL (7-18); BUN/Creat Ratio 14.8 RATIO (10-20); Calcium,Total 8.8 mg/dL (8.5-10.1); Chloride 106 mmol/L (98-107); Creatinine, Serum 1.08 mg/dL (0.70-1.30); EST Glomerular Filtration Rate 83 mL/min (>60); Est Glom Filt Rate - Afr Amer 101 mL/min (>60); Estimated Creatinine Clearance 108.92 ml/min; Glucose 89 mg/dL (74-106); Potassium 3.7 mmol/L (3.5-5.1); Sodium Level 140 mmol/L (136-145)
[2023-01-21 01:29] VITALS: PULSE 76; RESP 15; O2SAT 99
--- NOTE | 2023-01-21 01:30 | EDS_ITS ---
HPI History of Present Illness Chief Complaint: Headache Narrative Narrative: 32-year-old male presenting with headache. He states he feels like a throbbing pressure behind his eyes bilaterally. He has no history of migraines. This was an acute onset headache. He states he does not actually hurt as much and feels like pressure. No visual complaints. No light or sound sensitivity. No fever or chills. No neck stiffness. No history of trauma. PFSH PFS Medical History Anxiety Asthma Depression Former smoker Hearing loss, left Hepatitis Paranoid schizophrenia Restless leg syndrome Schizophrenia Seizures Substance abuse Substance abuse Home Medications quetiapine 100 mg tablet 150 mg PO DAILY Check with primary doctor 03/19/21 [History Last Taken Unknown] Allergy/AdvReac Type Severity Reaction Status Date / Time Penicillins Allergy Unknown Verified 01/20/23 23:12 Family History Grandmother Schizophrenia Drug abuse Grandfather Drug abuse Mother Drug abuse Social History Smoking Status: Former smoker substance use type: crack/cocaine, heroin, opiates and methamphetamine ROS ROS ED Constitutional Constitutional ED: Denies chills, fever(s) or sweats Eyes Eyes: Denies blurry vision or change in vision ENT ENT ED: Denies ear pain or sore throat Cardiovascular Cardiovascular: Denies chest pain, palpitations or racing heartbeat Respiratory/Chest Respiratory/Chest: Denies cough, dyspnea or sputum Gastrointestinal Gastrointestinal: Denies abdominal pain, constipation, diarrhea, nausea or vomiting Genitourinary Genitourinary ED: Denies dysuria, hematuria or urinary frequency Musculoskeletal Musculoskeletal: Denies arthralgias, myalgias or neck pain Integumentary Denies abscess, Abrasions or rash Neurologic Neurologic: Reports headache(s); Denies paresthesias or weakness Psychiatric Psychiatric: Denies anxiety, depression, suicidal ideation or suicidal thoughts Endocrine Endocrinology: Denies polydipsia or polyuria EXAM Physical Exam Const Vital Signs: 01/20/23 23:10 Temperature 98.3 F Temperature Source Temporal Pulse Rate 90 Respiratory Rate 18 Blood Pressure 167/90 H Blood Pressure Mean 115 Pulse Ox 98 Oxygen Delivery Method Room Air Positive well nourished General Appearance ED: NAD CHRIS Reports normocephalic and TM's clear atraumatic Tympanic Membrane ED: Yes TM's clear Eyes PERRL and EOMs intact bilaterally Neck no meningeal signs and no JVD Resp normal respiratory effort Cardio regular rate and regular rhythm Neuro oriented x3 and CN's II-XII intact bilaterally Neuro Narrative: No focal neurologic deficits or lateralizing signs or symptoms Sensorium / Orientation: awake and alert Psych mental status grossly normal MDM MDM MDM Narrative Medical decision making narrative: Patient presenting with headache. He has not had a headache this severe before. Is not a thunderclap headache. No focal neurologic deficits or lateralizing signs or symptoms. Obtain basic lab work which was normal. CT of the brain negative. Patient medicated with prochlorperazine and Benadryl and reevaluation he is resting comfortably. We went over his lab work which is normal. Since he is improved and his CT is negative I will discharge him home. He is given follow-up. Impression: 1. Headache Lab Data Labs: Laboratory Results - last 24 hr 01/21/23 00:04 WBC 5.6 RBC 5.32 Hgb 15.4 Hct 45.5 MCV 85.5 MCH 28.9 MCHC 33.8 RDW Std Deviation 39.5 RDW Coeff of Anali 12.9 Plt Count 194 MPV 10.1 Immature Gran % (Auto) 0.400 Neut % (Auto) 53.9 Lymph % (Auto) 32.4 [place] % (Auto) 9.2 Eos % (Auto) 3.7 Baso % (Auto) 0.4 Absolute Neuts (auto) 3.0 Absolute Lymphs (auto) 1.83 Nucleated RBC % 0 Sodium 140 Potassium 3.7 Chloride 106 Carbon Dioxide 28.0 Anion Gap 6 BUN 16 Creatinine 1.08 Estim Creat Clear Calc 108.92 Est GFR (MDRD) Af Amer 101 Est GFR (MDRD) Non-Af 83 BUN/Creatinine Ratio 14.8 Glucose 89 Calcium 8.8 Radiography Diagnostic Testing: Clinical Impression(s) from Imaging Studies Brain CT 01/20/23 23:45 IMPRESSION: Negative head/brain CT without intravenous contrast. Electronically Signed: Timur Mitchell MD at 1:08 EDT , Discharge Plan Triage Chief Complaint: Headache ED Provider: Mikael Triplett Dx/Rx/DC Orders Instructions: ED Headache Unspecified Prescriptions: No Action quetiapine 100 mg tablet 150 mg PO DAILY Patient Comments: Take 1 tablet by mouth at bedtime Take 1/2 tab for 7 days and then whole tab Primary Care Provider: Care Physician,No Primary Referrals: Cristofer Swanson MD [Non-Staff -Ordering Privileges] - 3-5 Days Care Physician,No Primary [Primary Care Provider] - Disposition Disposition: Home, Self Care
== END 2023-01-21 01:48 | disposition home or self-care (01) ==
PROVIDERS: Emergency Provider Student in an Organized Health Care Education/Training Program; Visit Provider Student in an Organized Health Care Education/Training Program
DX: R51.9 Headache, unspecified (principal); Z87.891 Personal history of nicotine dependence; F14.90 Cocaine use, unspecified, uncomplicated
CPT/HCPCS: 70450; 80048; 85025; 99283; J7030; A4216

== ENCOUNTER → 2024-04-04 | Outpatient (CLI) | payer MEDICAID, SELFPAY ==
[2024-04-04 17:30] LABS: Hematocrit 46.5 % (40-54); Hemoglobin 15.9 g/dL (13.0-16.5); Mean Corp Hgb Conc 34.2 g/dL (32-36); Mean Corpuscular Hgb 28.5 pg (27.0-32.0); Mean Corpuscular Volume 83.5 fL (80-94); Mean Platelet Vol. 10.6 fl (6.2-12.0); Platelet Count 218 K/mm3 (150-450); RBC Distribution Width CV 12.9 % (11.6-14.6); RBC Distribution Width SD 39.2 fl (35.1-43.9); Red Blood Count 5.57 M/mm3 (4.6-6.2); White Blood Count 4.7 K/mm3 (4.4-11.0)
[2024-04-04 18:21] LABS: Anion Gap 5 (5-15); BUN 15 mg/dL (7-18); BUN/Creat Ratio 13.5 RATIO (10-20); Calcium,Total 9.6 mg/dL (8.5-10.1); Chloride 106 mmol/L (98-107); Creatinine, Serum 1.11 mg/dL (0.70-1.30); EST Glomerular Filtration Rate 80 mL/min (>60); Est Glom Filt Rate - Afr Amer 97 mL/min (>60); Glucose 83 mg/dL (74-106); Potassium 3.8 mmol/L (3.5-5.1); Sodium Level 139 mmol/L (136-145)
[2024-04-04 18:40] LABS: Syphilis Antibodies Non-reactive
[2024-04-06 15:09] LABS: Absolute CD4 Helper 712 /uL (359-1519); Basophils (Absolute) 0 x10E3/uL (0.0-0.2); Eosinophils 2 % (Not Estab.); Eosinophils (Absolute) 0.1 x10E3/uL (0.0-0.4); Hematocrit 50.2 % (37.5-51.0); Immature Granulocytes 0 % (Not Estab.); Immature Granulocytes Absolute 0 x10E3/uL (0.0-0.1); Lymphs 36 % (Not Estab.); Lymphs (Absolute) 1.7 x10E3/uL (0.7-3.1); MCH 28.9 pg (26.6-33.0); MCHC 31.9 g/dL (31.5-35.7); MCV 91 fL (79-97); Monocytes 8 % (Not Estab.); Monocytes (Absolute) 0.4 x10E3/uL (0.1-0.9); Neutrophils 54 % (Not Estab.); Neutrophils (Absolute) 2.5 x10E3/uL (1.4-7.0); Percent % CD4 Pos. Lymph. 41.9 % (30.8-58.5); Platelets 218 x10E3/uL (150-450); RBC Count 5.54 x10E6/uL (4.14-5.80); RDW 13.1 % (11.6-15.4); WBC Count 4.6 x10E3/uL (3.4-10.8)
[2024-04-07 03:07] LABS: HIV-1 RNA by PCR, Quant. 20 copies/mL (.); LOG10 HIV-1 RNA 1.301 (.)
== END | disposition home or self-care (01) ==
PROVIDERS: Referring Provider Internal Medicine Infectious Disease; Visit Provider Internal Medicine Infectious Disease
DX: Z21 Asymptomatic human immunodeficiency virus [HIV] infection status (principal)
CPT/HCPCS: 36415; 80048; 85027; 86361; 86780; 87536

== ENCOUNTER → 2024-05-28 | Outpatient (CLI) | payer MEDICAID, SELFPAY ==
[2024-05-28 12:42] LABS: Absolute Lymphocyte Count 1.91 X10^3/uL (0.83-4.51); Absolute Neutrophil Count 2.5 X10^3/uL (2.0-7.7); Basophil# 0.02 X10^3/uL; Basophil% 0.4 % (0-1); Hematocrit 41.6 % (40-54); Hemoglobin 14.4 g/dL (13.0-16.5); Lymphocyte # 1.91 X10^3/ul (0.83-4.51); Lymphocyte % 38.1 % (19-41); Mean Corp Hgb Conc 34.6 g/dL (32-36); Mean Corpuscular Hgb 29.6 pg (27.0-32.0); Mean Corpuscular Volume 85.4 fL (80-94); Mean Platelet Vol. 9.8 fl (6.2-12.0); Monocyte# 0.45 X10^3/uL; NRBC Flagged by Analyzer 0 % (0-5); Neutrophil # 2.51 X10^3/uL (2.7-7.7); Neutrophil % 50.1 % (47-70); Platelet Count 206 K/mm3 (150-450); RBC Distribution Width CV 13.2 % (11.6-14.6); RBC Distribution Width SD 41.1 fl (35.1-43.9); Red Blood Count 4.87 M/mm3 (4.6-6.2)
[2024-05-28 13:23] LABS: Syphilis Antibodies Non-reactive
[2024-05-28 13:30] LABS: ALB/GLOB Ratio 1.2 RATIO (0.9-2.4); AST(SGOT) 19 U/L (15-37); Alanine Aminotransfer ALT/SGPT 35 U/L (16-61); Albumin, Serum 3.8 g/dL (3.2-5.0); Alkaline Phosphatase 59 U/L (45-117); Anion Gap 4 (5-15); BUN 12 mg/dL (7-18); BUN/Creat Ratio 10.5 RATIO (10-20); Chloride 108 mmol/L (98-107); Cholesterol 176 mg/dL (200); Creatinine, Serum 1.14 mg/dL (0.70-1.30); EST Glomerular Filtration Rate 77 mL/min (>60); Est Glom Filt Rate - Afr Amer 94 mL/min (>60); Globulin 3.3 g/dL (2.2-4.2); Glucose 91 mg/dL (74-106); Potassium 4.4 mmol/L (3.5-5.1); Protein, Total 7.1 g/dL (6.4-8.2); Sodium Level 142 mmol/L (136-145); Triglycerides 295 mg/dL
[2024-05-29 16:10] LABS: Absolute CD4 Helper 827 /uL (359-1519); Basophils (Absolute) 0 x10E3/uL (0.0-0.2); Eosinophils 2 % (Not Estab.); Eosinophils (Absolute) 0.1 x10E3/uL (0.0-0.4); Hematocrit 43.8 % (37.5-51.0); Hemoglobin 14.6 g/dL (13.0-17.7); Immature Granulocytes 0 % (Not Estab.); Immature Granulocytes Absolute 0 x10E3/uL (0.0-0.1); Lymphs 37 % (Not Estab.); Lymphs (Absolute) 1.9 x10E3/uL (0.7-3.1); MCH 29.4 pg (26.6-33.0); MCHC 33.3 g/dL (31.5-35.7); MCV 88 fL (79-97); Monocytes 9 % (Not Estab.); Monocytes (Absolute) 0.4 x10E3/uL (0.1-0.9); Neutrophils 52 % (Not Estab.); Neutrophils (Absolute) 2.6 x10E3/uL (1.4-7.0); Percent % CD4 Pos. Lymph. 43.5 % (30.8-58.5); Platelets 210 x10E3/uL (150-450); RBC Count 4.96 x10E6/uL (4.14-5.80); RDW 13.4 % (11.6-15.4); WBC Count 5.1 x10E3/uL (3.4-10.8)
[2024-05-30 03:07] LABS: HIV-1 RNA by PCR, Quant. 60 copies/mL (.); LOG10 HIV-1 RNA 1.778 (.)
== END | disposition home or self-care (01) ==
PROVIDERS: PCP Internal Medicine Infectious Disease; Referring Provider Internal Medicine Infectious Disease; Visit Provider Internal Medicine Infectious Disease
DX: B20 Human immunodeficiency virus [HIV] disease (principal)
CPT/HCPCS: 36415; 80053; 82465; 84478; 85025; 86361; 86780; 87536

== ENCOUNTER → 2025-03-29 | Outpatient (CLI) | payer MEDICAID, SELFPAY ==
[2025-03-29 09:54] LABS: Hematocrit 45.8 % (40-54); Hemoglobin 15.6 g/dL (13.0-16.5); Immature Granulocytes Count 0.010 X10^3/uL (0.0-0.0); Mean Corp Hgb Conc 34.1 g/dL (32-36); Mean Corpuscular Volume 83.4 fL (80-94); Mean Platelet Vol. 10.0 fl (6.2-12.0); NRBC Flagged by Analyzer 0 % (0-5); Platelet Count 196 K/mm3 (150-450); RBC Distribution Width CV 12.7 % (11.6-14.6); RBC Distribution Width SD 38.5 fl (35.1-43.9); Red Blood Count 5.49 M/mm3 (4.6-6.2); White Blood Count 5.4 K/mm3 (4.4-11.0)
[2025-03-29 10:53] LABS: Anion Gap 10 (5-15); BUN 10 mg/dL (4-19); BUN/Creat Ratio 9.3 RATIO (10-20); Calcium,Total 9.6 mg/dL (7.6-11.0); Carbon Dioxide 26.5 mmol/L (21.0-32.0); Chloride 103 mmol/L (98-108); Glucose 95 mg/dL (70-99); Potassium 4.5 mmol/L (3.3-5.1); Syphilis Antibodies Nonreactive (Nonreactive)
[2025-04-01 13:08] LABS: Hematocrit 49.3 % (37.5-51.0); Hemoglobin 16.5 g/dL (13.0-17.7); MCH 28.8 pg (26.6-33.0); MCHC 33.5 g/dL (31.5-35.7); MCV 86 fL (79-97); Percent % CD4 Pos. Lymph. 42.7 % (30.8-58.5); RDW 13.3 % (11.6-15.4)
[2025-04-01 16:08] LABS: HIV-1 RNA by PCR, Quant. < 20 copies/mL (.)
== END | disposition home or self-care (01) ==
PROVIDERS: Referring Provider Internal Medicine Infectious Disease; Visit Provider Internal Medicine Infectious Disease
DX: B20 Human immunodeficiency virus [HIV] disease (principal)
CPT/HCPCS: 36415; 80048; 85025; 86361; 86780; 87536